=== PATIENT | female | born 1990 | race Caucasian/White ===

== ENCOUNTER 2016-08-19 17:39 | Emergency (ER) | payer OTHER ==
[2016-08-19 17:56] VITALS: BP 117/72; TEMP 98.7; BMI 28.7
--- NOTE | 2016-08-19 19:08 | PDOC ---
History of Present Illness - General Chief Complaint: Pain Stated Complaint: HEADACHE/EAR PROBLEM/17 WKS Time Seen by Provider: 08/19/16 18:58 History Source: Patient Exam Limitations: No Limitations - History of Present Illness Initial Comments: CHIEF COMPLAINT: 25 y/o afebrile female, approximately 16 week female c/o right earache and other symptoms. HISTORY OF PRESENT ILLNESS: The patient states she has had a right earache for the past 2 weeks, along with neck pain, upper back pain and anterior chest pain. She states all of her pain is worse when she touches the affected areas or lifts anything. She does admit to lifting her 2 year old child at home often. She took tylenol today with little relief and has a PCP appointment tomorrow. She denies f/c, n/v/d, cough, hemoptysis, SOB, abd pain, hematuria, dysuria, vaginal bleeding/discharge. Vital signs on arrival are notable for pulse of 107. REVIEW OF SYSTEMS: GENERAL/CONSTITUTIONAL: No fever/chills. No weakness. No weight change. HEAD, EYES, EARS, NOSE AND THROAT: No change in vision. +right ear pain. No sore throat. CARDIOVASCULAR: +chest pain. No shortness of breath. RESPIRATORY: No cough, wheezing, or hemoptysis. GASTROINTESTINAL: No abd pain, nausea, vomiting, diarrhea. GENITOURINARY: No dysuria, frequency, or change in urination. MUSCULOSKELETAL: No joint or muscle swelling or pain. +neck and upper back pain. SKIN: No rash or easy bruising. NEUROLOGIC: No headache, vertigo, loss of consciousness, or loss of sensation. PHYSICAL EXAM: GENERAL: The patient is awake, alert, and fully oriented, in no acute distress. She is very well appearing, ambulatory, in NAD or obvious discomfort. HEAD: Normal with no signs of trauma. ENT: Pupils equal, round and reactive to light, extraocular movements intact, sclera anicteric, conjunctiva clear. Neck supple. TMs normal b/l. Canals normal without erythema or edema b/l. LUNGS: Clear to auscultation bilaterally. Normal excursion. No respiratory distress or use of accessory muscles. CV: RRR, S1/S2, no MRG. Cap refill < 2 sec. CHEST WALL: Reproducible anterior chest wall pain with palpation. ABDOMEN: Soft, non-distended, non-tender even to deep palpation, no hepatomegaly or splenomegaly, no masses. MUSCULOSKELETAL: Reproducible neck pain with palpation of b/l trapezius muscles. No midline cervical spine TTP or step offs. EXTREMITIES: Normal range of motion, no edema. NEUROLOGICAL: Normal speech, normal gait. CN II-XII grossly intact. PSYCH: Normal mood, normal affect. SKIN: Warm, dry, normal turgor, no rashes or lesions noted. Past History - Past Medical History Allergies/Adverse Reactions: Allergies Allergy/AdvReac Type Severity Reaction Status Date / Time No Known Allergies Allergy Verified 08/19/16 17:53 Home Medications: Ambulatory Orders Pnv95/Ferrous Fumarate/FA [ Vitamin Tablet] 1 each PO DAILY 05/26/16 Asthma: Yes Cancer: No Cardiac Disorders: No Diabetes: No HTN: No Suicide Attempt (Hx): No Seizures: No Thyroid Disease: No - Reproductive History (#): 2 Para: 2 Therapeutic (s) & number: No - Immunization History Immunization Up to Date: Yes - Psycho/Social/Smoking Cessation Hx Anxiety: No Suicidal Ideation: No Smoking History: Never smoked Have you smoked in the past 12 months: No Hx Alcohol Use: No Drug/Substance Use Hx: No Substance Use Type: None Hx Substance Use Treatment: No *Physical Exam - Vital Signs Last Vital Signs Temp Pulse Resp BP Pulse Ox 98.7 F 107 H 19 117/72 100 08/19/16 17:53 08/19/16 17:53 08/19/16 17:53 08/19/16 17:53 08/19/16 17:53 Medical Decision Making - Medical Decision Making A/P: 25 y/o female with multiple complaints. Most appear to be musculoskeletal in nature. She continues to point to her lower sternum for area of pain. Will give PO zantac. The patient now states her middle chest pain is much better. The patient is no longer tachycardic. Suggested she try to avoid lifting, including her child if possible to help with her chest, neck and back pain. Suggested heating pad and massage as well to help with pain, and tylenol if needed. Instructed her to keep her f/u appointment with her PCP scheduled for tomorrow and return to the ER with any worsening or concerning symptoms. The patient verbalizes understanding of all instructions, has no further questions and is awaiting discharge. *DC/Admit/Observation/Transfer Diagnosis at time of Disposition: Musculoskeletal chest pain, Reflux esophagitis, Musculoskeletal pain - Discharge Dispostion Disposition: HOME Condition at time of disposition: Improved - Patient Instructions Printed Discharge Instructions: DI for Musculoskeletal Pain, Heartburn -- Overview Additional Instructions: Discharge Instructions: -Take Tylenol if needed for pain -Use massage and heating pad to help with pain -Avoid heavy lifting -Take over the counter Zantac if needed for middle chest pain -Keep the follow up appointment with your doctor scheduled for tomorrow -Return to the ER with any worsening or concerning symptoms Print Language: KOREAN
[2016-08-19] MEDS ORDERED: RANITIDINE HCL 150 MG TABLET (FP) PO ONE (19:19)
[2016-08-19] MEDS ORDERED: RANITIDINE HCL 150 MG TABLET (FP) ONE (19:24)
[2016-08-19 20:08] VITALS: PULSE 97
== END 2016-08-19 20:04 | disposition home or self-care (01) ==
LOC: JERFT 17:39
DX: O26.892 Other specified pregnancy related conditions, second trimester (principal); R07.89 Other chest pain; K21.0 Gastro-esophageal reflux disease with esophagitis; M79.1 Myalgia; J45.909 Unspecified asthma, uncomplicated; Z3A.17 17 weeks gestation of pregnancy
CPT/HCPCS: 99281-25

== ENCOUNTER 2017-01-15 11:15 | Inpatient (IN) | payer OTHER ==
[2017-01-15] MEDS ORDERED: PROMETHAZINE HCL 25 MG/1 ML VIAL IVPUSH PRN (12:34)
[2017-01-15] MEDS ORDERED: BUTORPHANOL TARTRATE 1 MG/ML VIAL IVPB PRN (12:34)
[2017-01-15] MEDS ORDERED: DEXTROSE 5%-LACTATED RINGERS 1,000 ML IV SCH ×2 (12:45)
--- NOTE | 2017-01-15 12:50 | HP ---
Past Medical History - Primary Care Physician PCP:: Elayne Owusu - Admission Chief Complaint: 26 yrs , 39 weeks iup onset LP since 6.00AM History of Present Illness: PNC at [address] [place] [address] . 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 Weeks Gestation by Dates: 39 ...EDC by Dates: 01/22/17 ...EDC by Sono: 01/22/17 Heme/Onc: Yes: Anemia Infectious Disease: No: HIV, STD's Psych: No: Addictions, Depression, Psychosis Endocrine: No: Diabetes Mellitus, Hyperparathyroidism, Hyperthyroidism, Hypothyroidism - Past Surgical History Past Surgical History: Yes: None Hx Myomectomy: No Hx Transabdominal Cerclage: No - Smoking History Smoking history: Never smoked Have you smoked in the past 12 months: No - Alcohol/Substance Use Hx Alcohol Use: No History of Substance Use: reports: None - Social History ADL: Independent History of Recent Travel: No Home Medications - Allergies Allergies/Adverse Reactions: Allergies Allergy/AdvReac Type Severity Reaction Status Date / Time No Known Allergies Allergy Verified 01/13/17 13:17 - Home Medications Home Medications: Ambulatory Orders Ferrous Sulfate [Feosol] 325 mg PO DAILY 09/30/16 Vit/Iron Fumarate/FA [ Tablet] 1 tab PO DAILY 09/30/16 Physical Exam - Maternity Vital Signs: Vital Signs Temperature 97.6 F 01/15/17 12:00 Pulse Rate 86 01/15/17 12:00 Respiratory Rate 18 01/15/17 12:00 Blood Pressure 138/76 01/15/17 12:00 O2 Sat by Pulse Oximetry (%) Constitutional: Yes: Well Nourished, Mild Distress Eyes: Yes: WNL HENT: Yes: WNL, Normocephalic Neck: Yes: WNL, Trachea Midline Cardiovascular: Yes: WNL, Regular Rate and Rhythm Breast(s): Yes: WNL - Abdominal Exam/OB Fundal Height: 40 Number of Fetuses: Single Presentation: Vertex Contractions: Yes Regularity: Regular (2-4 MIN) Intensity: Moderate Monitor Mode: External Heart Rate (range): 130-140 Heart Rate Location: [facility] Category: I Accelerations: Uniform Decelerations: None - Vaginal Exam/OB Vaginal Bleediing: No Speculum Exam: Yes Dilatation (cm): 2 Effacement (%): 80 Amniotic Membrane Status: Intact Presentation: Vertex/Position Station: -3 - Physical Exam Musculoskeletal: Yes: WNL Extremities: Yes: WNL. No: Calf Tenderness Edema: No Integumentary: Yes: WNL Deep Tendon Reflex Grade: Normal +2 ...Motor Strength: WNL Psychiatric: Yes: WNL, Alert, Oriented - Labs Lab Results: Laboratory Tests 01/15/17 01/15/17 01/15/17 12:45 12:45 12:45 WBC 9.3 Hgb 11.3 Hct 34.1 Plt Count 201 Neutrophils % 78.0 Lymphocytes % 16.9 D Monocytes % 4.5 Eosinophils % 0.3 Basophils % 0.3 INR 0.88 PTT (Actin FS) 26.8 L D Sodium Potassium Chloride Carbon Dioxide BUN Creatinine Random Glucose Calcium RPR Titer Nonreactive 01/15/17 12:45 WBC Hgb Hct Plt Count Neutrophils % Lymphocytes % Monocytes % Eosinophils % Basophils % INR PTT (Actin FS) Sodium 139 Potassium 4.1 Chloride 107 Carbon Dioxide 22 BUN 7 Creatinine 0.6 Random Glucose 79 Calcium 8.8 RPR Titer Problem List - Problems (1) 39 weeks gestation of Code(s): Z3A.39 - 39 WEEKS GESTATION OF (2) Labor established Code(s): BAC6420 - Assessment/Plan 26 Yyrs , 39 weeks, gbs neg in early labor plan Ct Trial of labor stadol + Phenerga for labor analgesia
[2017-01-15 12:54] VITALS: BMI 33.0
[2017-01-15 13:05] LABS: BASOPHIL 0.3 % (0-2.0); EOSINOPHIL 0.3 % (0-4.5); MCH 28.8 pg (25.7-33.7); MEAN CELL VOLUME 87.2 fl (80-96); MEAN PLT VOLUME 9.1 fl (7.5-11.1); PLATELET COUNT 201 K/MM3 (134-434); RDW 14.6 % (11.6-15.6); WHITE BLOOD COUNT 9.3 K/mm3 (4.0-10.0)
[2017-01-15 13:18] LABS: INR 0.88 (0.82-1.09); PROTHROMBIN TIME (PATIENT) 9.7 SEC (9.98-11.88)
[2017-01-15 13:21] LABS: ACTIVATED PTT 26.8 SECONDS (26.9-34.4)
[2017-01-15 13:28] LABS: ANION GAP 10 (8-16); CALCIUM 8.8 mg/dL (8.5-10.1); CO2 22 mmol/L (21-32); CREATININE 0.6 mg/dL (0.55-1.02); GLUCOSE,RANDOM 79 mg/dL (74-106)
[2017-01-15] MEDS ORDERED: OXYTOCIN 15 UNITS/ LR 250 ML 250 ML IVPB SCH (15:15)
--- NOTE | 2017-01-15 16:23 | PN ---
Progress Note, Labor Vaginal Exam #1 Labor Exam Date: 01/15/17 Labor Exam Time: 16:10 Heart Rate (range): 130-140 Dilatation: 6 Effacement (%): 90 Amniotic Membrane Status: Ruptured (SROM clear) Presentation: Vertex/Position Station: -1 Remarks: fhr cat-1 uc q2 min 14.45 Stadol 2 mg + phenrgan 25 mg IV stat 16.00 Pitocin started pt requests for epidural Vaginal Exam #2 Labor Exam Date: 01/15/17 Labor Exam Time: 06:40 Heart Rate (range): 140-150 Dilatation: 10 Effacement (%): 100 Amniotic Membrane Status: Ruptured Station: +1 Remarks: fhr cat-1 UC q 2-3 min wait for natural descent before encouraging to push Selected Entries 01/15/17 18:40 Pulse Rate 101 H Blood Pressure 126/75
[2017-01-15] MEDS ORDERED: ELECTROLYTE-148 SOLN 1,000 ML IV SCH (16:30)
[2017-01-15] MEDS ORDERED: FENTANYL/BUPIVACAINE/NS/PF - PCEA - 50 ML DISP.SYRIN EP SCH (17:00)
[2017-01-15] MEDS ORDERED: METHYLERGONOVINE MALEATE 0.2 MG/1 ML AMP IM PRN (19:50)
[2017-01-15] MEDS ORDERED: WITCH HAZEL 50% (TUCKS) 40 PAD/JAR PAD TP PRN (19:50)
[2017-01-15] MEDS ORDERED: BENZOCAINE 20% 57 GM BOTTLE TP PRN (19:50)
[2017-01-15] MEDS ORDERED: BENZOCAINE 28 GM HEMORRHOIDAL OINTMENT TP PRN (19:50)
[2017-01-15] MEDS ORDERED: BISACODYL 10 MG SUPP.RECT RC PRN (19:50)
[2017-01-15] MEDS ORDERED: oxyCODONE HCL 5 MG TABLET PO PRN (19:50)
[2017-01-15] MEDS ORDERED: D5W-LR W/ 20 UNITS OXYTOCIN 1,000 ML IV SCH (20:00)
--- NOTE | 2017-01-15 20:07 | PN ---
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 GBS neg PNC at [address] [place] [address] Pitocin augmentation was given . Intrapartum course was uneventful
[2017-01-15] MEDS: ACETAMINOPHEN 325 MG TABLET (FP) PO PRN (20:41)
[2017-01-15] MEDS: IBUPROFEN 600 MG TABLET (FP) PO PRN (20:42)
[2017-01-16] MEDS: IBUPROFEN 600 MG TABLET (FP) PO PRN ×5 (01:15→21:51)
[2017-01-16] MEDS: ACETAMINOPHEN 325 MG TABLET (FP) PO PRN ×4 (01:15→21:52)
[2017-01-16 07:12] LABS: BASOPHIL 0.7 % (0-2.0); EOSINOPHIL 0.4 % (0-4.5); MCH 29.3 pg (25.7-33.7); MCHC 33.5 g/dl (32.0-36.0); MEAN CELL VOLUME 87.5 fl (80-96); MEAN PLT VOLUME 9.1 fl (7.5-11.1); NEUTROPHILS 68.4 % (42.8-82.8); PLATELET COUNT 167 K/MM3 (134-434); RDW 14.4 % (11.6-15.6)
[2017-01-16 07:38] LABS: ANION GAP 5 (8-16); CALCIUM 8.1 mg/dL (8.5-10.1); CO2 26 mmol/L (21-32); CREATININE 0.7 mg/dL (0.55-1.02); GLUCOSE,RANDOM 112 mg/dL (74-106)
[2017-01-16] MEDS: FERROUS SO4 325 MG TABLET (FP) PO SCH ×2 (08:08→16:58)
--- NOTE | 2017-01-16 09:41 | PN ---
Post Progress Note - Subjective Subjective: no complains Post Day: 1 Type of Delivery: Vital Signs: Vital Signs Temperature 98.0 F 01/16/17 09:34 Pulse Rate 81 01/16/17 09:34 Respiratory Rate 18 01/16/17 09:34 Blood Pressure 118/67 01/16/17 09:34 O2 Sat by Pulse Oximetry (%) 100 01/15/17 20:45 Breast Exam: Yes: Soft. No: Engorged Uterus: Yes: Fundus Firm, Non-tender Lochia: Yes: Rubra Lochia, amount: Moderate Extremities: Yes: Calves non-tender, Edema Perineum: Yes: Intact Activity: Ambulating - Labs Labs: CBC WBC 10.0 K/mm3 (4.0-10.0) 01/16/17 06:00 RBC 3.11 M/mm3 (3.60-5.2) L D 01/16/17 06:00 Hgb 9.1 GM/dL (10.7-15.3) L D 01/16/17 06:00 Hct 27.2 % (32.4-45.2) L D 01/16/17 06:00 MCV 87.5 fl (80-96) 01/16/17 06:00 MCHC 33.5 g/dl (32.0-36.0) 01/16/17 06:00 RDW 14.4 % (11.6-15.6) 01/16/17 06:00 Plt Count 167 K/MM3 (134-434) 01/16/17 06:00 MPV 9.1 fl (7.5-11.1) 01/16/17 06:00 Neutrophils % 68.4 % (42.8-82.8) 01/16/17 06:00 Lymphocytes % 23.6 % (8-40) D 01/16/17 06:00 Monocytes % 6.9 % (3.8-10.2) 01/16/17 06:00 Eosinophils % 0.4 % (0-4.5) 01/16/17 06:00 Basophils % 0.7 % (0-2.0) 01/16/17 06:00 Problem List - Problems (1) 39 weeks gestation of Code(s): Z3A.39 - 39 WEEKS GESTATION OF (2) Labor established Code(s): JIA4186 - Assessment/Plan anemia stable plan discharge tomorrow
[2017-01-16] MEDS ORDERED: PNEUMOC 13-VAL CONJ-DIP CRM/PF 0.5 ML DISP.SYRIN IM ONE (10:00)
[2017-01-16] MEDS ORDERED: DIPHTH,PERTUSS(ACELL),TET 0.5 ML DISP.SYRIN IM ONE (10:00)
[2017-01-16] MEDS: PRENATAL VITAMINS W/ FOLIC ACID TABLET (FP) PO SCH (10:00)
[2017-01-16] MEDS ORDERED: SENNOSIDES/DOCUSATE COMBO (SENNA PLUS) TABLET (UD) PO PRN (22:00)
[2017-01-17] MEDS: ACETAMINOPHEN 325 MG TABLET (FP) PO PRN ×3 (02:05→13:06)
[2017-01-17] MEDS: IBUPROFEN 600 MG TABLET (FP) PO PRN ×3 (02:06→13:05)
[2017-01-17] MEDS: FERROUS SO4 325 MG TABLET (FP) PO SCH (07:19)
--- NOTE | 2017-01-17 08:07 | DS ---
Physical Exam-[facility] Vital Signs: Vital Signs Temperature 97.9 F 01/16/17 22:00 Pulse Rate 82 01/16/17 22:00 Respiratory Rate 20 01/16/17 22:00 Blood Pressure 116/66 01/16/17 22:00 O2 Sat by Pulse Oximetry (%) 100 01/15/17 20:45 Constitutional: Yes: Well Nourished, Pallor Eyes: Yes: WNL HENT: Yes: WNL Neck: Yes: WNL Cardiovascular: Yes: WNL, Regular Rate and Rhythm Respiratory: Yes: WNL Gastrointestinal: Yes: WNL, Normal Bowel Sounds Renal/: Yes: WNL ....Post : Yes: Uterus firm, Uterus non-tender, Moderate lochia rubra ( perineum intact) Breast(s): Yes: WNL Musculoskeletal: Yes: WNL Extremities: Yes: WNL. No: Calf Tenderness Edema: LLE: 1+, RLE: 1+ Integumentary: Yes: WNL Neurological: Yes: WNL, Alert, Oriented ...Motor Strength: WNL Psychiatric: Yes: WNL, Alert, Oriented Labs: CBC, BMP 01/16/17 06:00 01/16/17 06:00 Delivery - Delivery Vaginal Delivery: No Problems, Spontaneous Type of Anesthesia: Epidural Episiotomy/Laceration: None EBL (cc): 200 Delivery, Single - Stages of Labor Date 1st Stage Initiatied: 01/15/17 Time 1st Stage Initiated: 06:00 Date 2nd Stage Initiated: 01/15/17 Time 2nd Stage Initiated: 18:40 Date of Delivery: 01/15/17 Time of Delivery: 19:31 Time Placenta Delivered: 19:33 Placenta: Yes: Spontaneous, Uterine Exploration - Condition of Infant 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 GBS neg PNC at [address] [place] [address] Pitocin augmentation was given . Intrapartum course was uneventful pp course uneventful. anemia counselled discharge today Discharge Summary Reason For Visit: LABOR Current Active Problems 39 weeks gestation of (Acute) Anemia (Acute) Labor established (Acute) Normal spontaneous vaginal delivery (Acute) Condition: Stable - Instructions Diet, Activity, Other Instructions: Post Instructions DIET: Continue good diet high in protein, calcium, and iron rich foods. Drink at least eight (8) glasses of water daily in addition to other fluids. ___ Regular diet MEDICATIONS: Continue vitamins and iron as previously directed. Motrin and Tylenol may be taken for minor discomfort. ACTIVITY: Mild to moderate exercise may be started in two (2) weeks. Take frequent rest periods. Resume normal activity after six (6) week check up. WOUND CARE OF OPERATIVE SITE: Continue use of perineal bottle until vaginal discharge stops. Keep area clean. Shower daily. Keep abdominal wound dry. Report any drainage or redness to physician. Tub baths, tampons and douches are not permitted for [address] Breast feeding & or Bottle feeding BREAST CARE: (For those that are not breast feeding): If engorgement occurs: Wear tight fitting bra. Take Tylenol or Motrin for pain. Apply cold packs (ice in bags to each breast ) FAMILY PLANNING: There are many control alternatives to pursue and they should be discussed at your first office visit. You may resume sexual activity after your six (6) week check up. (Remember, breast feeding is not a contraceptive) NEXT PHYSICIAN APPOINTMENT: Be certain to call for a six (6) week appointment, unless otherwise directed. Call Clinic or got to Emergency Dept if you have any of the following: Heavy vaginal bleeding Painful urination Leg pain Unusual odor noted to vaginal bleeding High fever Red streaking noted on breast Referrals: Elayne Owusu MD [Staff Physician] - Disposition: HOME - Home Medications Comprehensive Discharge Medication List: Ambulatory Orders Ferrous Sulfate [Feosol] 325 mg PO DAILY 09/30/16 Vit/Iron Fumarate/FA [ Tablet] 1 tab PO DAILY 09/30/16 Acetaminophen [Tylenol .Regular Strength -] 650 mg PO Q3H PRN #0 tablet Ferrous Sulfate [Feosol] 325 mg PO BIDWM tab 01/16/17 Ibuprofen [Motrin -] 200 mg PO Q4H PRN #0 tablet 01/16/17 Vitamins (Sjr) - 1 tab PO DAILY tablet 01/16/17
[2017-01-17 08:40] VITALS: BP 123/80; PULSE 64; TEMP 98.1
[2017-01-17] MEDS: PRENATAL VITAMINS W/ FOLIC ACID TABLET (FP) PO SCH (10:16)
== END 2017-01-17 15:00 | disposition home or self-care (01) | DRG 560 ==
LOC: JDEL 11:15 → JLDR 11:55 → J3W 21:46
PROVIDERS: ADMIT Obstetrics & Gynecology; ATTEND Obstetrics & Gynecology
PROC: 10E0XZZ Delivery of Products of Conception, External Approach (ICD-10-PCS; principal; 2017-01-15)
DX: O99.02 Anemia complicating childbirth (principal); D64.9 Anemia, unspecified; Z3A.39 39 weeks gestation of pregnancy; Z37.0 Single live birth
CPT/HCPCS: 36415; 59409; 80048; 85025; 85610; 85730; 86593; 86850; 86900; 86901; 90670; 90715

== ENCOUNTER 2017-06-09 08:03 | Emergency (ER) | payer OTHER ==
[2017-06-09 08:13] VITALS: BP 134/70; PULSE 80; TEMP 98.6; BMI 24.7
--- NOTE | 2017-06-09 08:46 | PDOC ---
History of Present Illness - General Chief Complaint: Cold Symptoms Stated Complaint: COLD, FEVER Time Seen by Provider: 06/09/17 08:15 History Source: Patient Exam Limitations: No Limitations - History of Present Illness Initial Comments: 06/09/17 08:18 Patient is a [26-year-old female, no significant medical history currently on no medication. Presents to the Emergency Room with sore throat, Productive yellow sputum cough for 5 days, tactile fever since yesterday took tylenol one hour prior to arrival. Vomiting yesterday and this AM. Unable to eat solids. Pain to the back and the chest with coughing which started after she vomited yesterday. 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 Allergies: No known allergies Medications: [Albuterol PRN] Family History: Non-contributory Social History: Denies smoking, alcohol use, or IVDU Vital signs on arrival are [notable for pulse of 80.] Review of Systems GENERAL/CONSTITUTIONAL: [Fever, cough body aches. No weakness. No weight change. ] HEAD, EYES, EARS, NOSE AND THROAT: [No change in vision. No ear pain or discharge. No sore throat. ] CARDIOVASCULAR: [No chest pain or shortness of breath.] RESPIRATORY: [No cough, wheezing, or hemoptysis.] GASTROINTESTINAL: [+ nausea and vomiting, No diarrhea or constipation. No rectal bleeding.] GENITOURINARY: [No dysuria, frequency, or change in urination.] MUSCULOSKELETAL: [No joint or muscle swelling or pain. No neck or back pain.] SKIN : [No rash or easy bruising.] NEUROLOGIC: [No headache, vertigo, loss of consciousness, or loss of sensation.] Physical Exam: GENERAL: [The patient is awake, alert, and fully oriented, in no acute distress. ] EYES: [Pupils equal, round and reactive to light, extraocular movements intact, sclera anicteric, conjunctiva clear.] ENT: [Ears normal, nares patent, oropharynx clear without exudates. Moist mucous membranes. No uvula deviation] NECK: [Normal range of motion, supple without lymphadenopathy, JVD, or masses.] LUNGS: [Breath sounds equal, rhonchi bilaterally, no wheezing. Productive cough noted during assessment, tsang dark sputum] HEART: [Regular rate and rhythm, normal S1 and S2 without murmur, rub or gallop. ] ABDOMEN: [Soft, nontender, normoactive bowel sounds. No guarding, no rebound. No masses. No bruising or abrasions] MUSCULOSKELETAL: [Normal range of motion, no edema. No clubbing or cyanosis. No cords, erythema, or tenderness. No CVA Tenderness with fist palpation.] NEUROLOGICAL: [Cranial nerves II through XII grossly intact. Normal speech, normal gait.] SKIN: [Warm, Dry, normal turgor, no rashes or lesions noted.] Past History - Past Medical History Allergies/Adverse Reactions: Allergies Allergy/AdvReac Type Severity Reaction Status Date / Time No Known Allergies Allergy Verified 06/09/17 08:11 Home Medications: Ambulatory Orders Azithromycin [Zithromax 250mg Tablets -] 250 mg PO UTDICT #6 tab 06/09/17 Ondansetron [Zofran Odt -] 4 mg SL TID #10 od.tablet 06/09/17 Asthma: Yes Cancer: No Cardiac Disorders: No COPD: No Diabetes: No HTN: No Seizures: No Thyroid Disease: No - Reproductive History (#): 2 Para: 2 Therapeutic (s) & number: No - Immunization History Immunization Up to Date: Yes - Suicide/Smoking/Psychosocial Hx Smoking History: Never smoked Have you smoked in the past 12 months: No Hx Alcohol Use: No Drug/Substance Use Hx: No Substance Use Type: None Hx Substance Use Treatment: No *Physical Exam - Vital Signs Last Vital Signs Temp Pulse Resp BP Pulse Ox 98.6 F 80 18 134/70 100 06/09/17 08:10 06/09/17 08:10 06/09/17 08:10 06/09/17 08:10 06/09/17 08:10 Medical Decision Making - Medical Decision Making 06/09/17 08:50 A/P: Patient With productive cough, sore throat and cough, Fever with post tussive emesis. Patiet has not received an influenza vaccine. I will sent influenza and rapid strep. Zofran 4 mg PO for vomiting. 06/09/17 09:25 Rapid strep and influenza negative, patient with productive green and tsang sputum , cough. Patient with back pain and musculoskeletal chest pain with coughing. Will DC patient on azithromycin Zofran for nausea follow-up with PMD in 3 days I discussed the physical exam findings, ancillary test results and final diagnoses with the patient. I answered all of the patient's questions. The patient was satisfied with the care received and felt comfortable with the discharge plan and treatment plan. The patient will call to arrange follow-up and will return to the Emergency Department with any new, persistent or worsening symptoms. 06/09/17 09:28 *DC/Admit/Observation/Transfer Diagnosis at time of Disposition: Bronchitis - Discharge Dispostion Disposition: HOME Condition at time of disposition: Stable Admit: No - Prescriptions Prescriptions: Azithromycin [Zithromax 250mg Tablets -] 250 mg PO UTDICT #6 tab Ondansetron [Zofran Odt -] 4 mg SL TID #10 od.tablet - Referrals - Patient Instructions Printed Discharge Instructions: DI for Acute Bronchitis Additional Instructions: Keep head of bed elevated 45 when sleeping Cool air humidifier Antibiotics as ordered until completed Motrin for fever greater than 101 Followup in the primary care doctor's office in 2 days for evaluation. If any respiratory distress, increased cough, inability to drink, increased wheezing please return immediately to emergency department. - Post Discharge Activity
[2017-06-09] MEDS ORDERED: ONDANSETRON *ODT* 4 MG TABLET ONE (08:47)
[2017-06-09] MEDS ORDERED: ONDANSETRON *ODT* 4 MG TABLET SL ONE (08:52)
== END 2017-06-09 09:48 | disposition home or self-care (01) ==
LOC: JERFT 08:03
DX: J40 Bronchitis, not specified as acute or chronic (principal)
CPT/HCPCS: 87070; 87430; 87804; 99281-25

== ENCOUNTER 2017-09-20 19:41 | Emergency (ER) | payer OTHER ==
[2017-09-20 19:56] VITALS: BP 120/80; PULSE 96; TEMP 98.6; BMI 29.2
[2017-09-20] MEDS ORDERED: ACETAMINOPHEN 325 MG TABLET (FP) PO ONE (20:02)
[2017-09-20] MEDS ORDERED: ACETAMINOPHEN 325 MG TABLET (FP) ONE (20:03)
--- NOTE | 2017-09-20 20:09 | PDOC ---
History of Present Illness - General Chief Complaint: Injury Stated Complaint: FALL/12WKS History Source: Patient Exam Limitations: No Limitations - History of Present Illness Initial Comments: 09/20/17 20:01 Patient is a 26-year-old female with history of asthma, currently 12 weeks complaining of right knee and hip pain. Pain is 7/10, sharp and mostly with movement. States she was sleeping in the floor, bent over to pick something up, stated and fell on her right knee. This was called to transport to the hospital. States initially she only felt the knee pain however when EMS arrived and palpated the groin and it was painful. Denies any head strike, loss of consciousness, abdominal trauma, abdominal pain, vaginal bleeding. PMHX: as above PSOCHx: neg drug, etoh, cig. ALL: NKDA GENERAL/CONSTITUTIONAL: [No fever or chills. No weakness. No weight change.] HEAD, EYES, EARS, NOSE AND THROAT: [No change in vision. No ear pain or discharge. No sore throat.] CARDIOVASCULAR: [No chest pain or shortness of breath.] RESPIRATORY: [No cough, wheezing, or hemoptysis.] GASTROINTESTINAL: [No nausea, vomiting, diarrhea or constipation. No rectal bleeding.] GENITOURINARY: [No dysuria, frequency, or change in urination.] MUSCULOSKELETAL: (+) joint pain (-) muscle swelling or pain. No neck or back pain.] SKIN AND BREASTS: [No rash or easy bruising.] NEUROLOGIC: [No headache, vertigo, loss of consciousness, or loss of sensation.] PSYCHIATRIC: [No depression or anxiety.] ENDOCRINE: [No increased thirst. No abnormal weight change.] HEMATOLOGIC/LYMPHATIC: [No anemia, easy bleeding, or history of blood clots.] ALLERGIC/IMMUNOLOGIC: [No hives or skin allergy. No latex allergy.] GENERAL: [The patient is awake, alert, and fully oriented, in no acute distress. ] HEAD: [Normal with no signs of trauma.] EYES: [Pupils equal, round and reactive to light, extraocular movements intact, sclera anicteric, conjunctiva clear.] ENT: [Ears normal, nares patent, oropharynx clear without exudates. Moist mucous membranes.] NECK: [Normal range of motion, supple without lymphadenopathy, JVD, or masses.] LUNGS: [Breath sounds equal, clear to auscultation bilaterally. No wheezes, and no crackles.] HEART: [Regular rate and rhythm, normal S1 and S2 without murmur, rub.] ABDOMEN: [Soft, nontender, normoactive bowel sounds. No guarding, no rebound. No masses.] EXTREMITIES: Decreased range of motion right lower extremity, (+) tenderness over the right knee with deformity - high riding patella, mild tenderness to the right groin, no edema. No clubbing or cyanosis. No cords, erythema, or tenderness.] NEUROLOGICAL: [Cranial nerves II through XII grossly intact. Normal speech, normal gait.] PSYCH: [Normal mood, normal affect.] SKIN: [Warm, Dry, normal turgor, no rashes or lesions noted.] 09/20/17 22:43 Past History - Past Medical History Allergies/Adverse Reactions: Allergies Allergy/AdvReac Type Severity Reaction Status Date / Time No Known Allergies Allergy Verified 09/20/17 19:56 Home Medications: Ambulatory Orders Azithromycin [Zithromax 250mg Tablets -] 250 mg PO UTDICT #6 tab 06/09/17 Ondansetron [Zofran Odt -] 4 mg SL TID #10 od.tablet 06/09/17 Asthma: Yes Cancer: No Cardiac Disorders: No COPD: No Diabetes: No HTN: No Seizures: No Thyroid Disease: No - Reproductive History (#): 2 Para: 2 Therapeutic (s) & number: No - Immunization History Immunization Up to Date: Yes - Suicide/Smoking/Psychosocial Hx Smoking History: Never smoked Have you smoked in the past 12 months: No Information on smoking cessation initiated: No Hx Alcohol Use: No Drug/Substance Use Hx: No Substance Use Type: None Hx Substance Use Treatment: No *Physical Exam - Vital Signs Last Vital Signs Temp Pulse Resp BP Pulse Ox 98.6 F 96 H 18 120/80 100 09/20/17 19:54 09/20/17 19:54 09/20/17 19:54 09/20/17 19:54 09/20/17 19:54 Procedures - Joint Reduction Right Joint Reduction Site: right: Knee (patella) Pre-Procedure NV Exam: abnormal Conscious Sedation: No Procedure: Other (manipulation patella) Post-Procedure NV Exam: normal Complications: No Post Joint Reduction Film: joint reduced Immobilized: Yes ED Treatment Course - RADIOLOGY Radiology Studies Ordered: Category Date Time Status KNEE 3 POS-RIGHT [RAD] Stat Radiology 09/20/17 19:59 Ordered Medical Decision Making - Medical Decision Making 09/20/17 20:15 Patient is a 26-year-old female history of asthma who is 12 weeks complaining off right knee and hip pain after a fall to her knee. Since the patient is we will get a x-ray of the knee which abdominal sheild. tylneol 975mg po 09/20/17 22:38 xray shows mild dislocated patella reduction done with good relief of pain, placed in knee immobilizer, suprapatella tendon intact, patient has full painless ROM of the knee. will not do a reduction xray due to the . I discussed the physical exam findings, ancillary test results and final diagnoses with the patient. I answered all of the patient's questions. The patient was satisfied with the care received and felt comfortable with the discharge plan and treatment plan. The Patient agrees to follow up with the primary care physician within 24-72 hours. Instructed to follow-up with orthopedic. *DC/Admit/Observation/Transfer Diagnosis at time of Disposition: Closed patellar dislocation Qualifiers: Encounter type: initial encounter Laterality: right Qualified Code(s): S83.004A - Unspecified dislocation of right patella, initial encounter - Discharge Dispostion Disposition: HOME Condition at time of disposition: Stable - Referrals Referrals: Shandra Lepe [Primary Care Provider] - Andry Anne MD [Staff Physician] - - Patient Instructions Printed Discharge Instructions: DI for Patellar Dislocation Additional Instructions: Your Discharge Instructions: You must call primary care physician within 24 hours to arrange follow-up. Return to the Emergency Department with any new, persistent or worsening symptoms, for fever, chills, SOB, dizziness or any other concerning changes that may occur. Wear the knee immobilizer until seen by orthopedist. - Post Discharge Activity
== END 2017-09-20 22:57 | disposition home or self-care (01) ==
LOC: JER 19:41
PROC: 0QSDXZZ Reposition Right Patella, External Approach (ICD-10-PCS; principal; 2017-09-20)
DX: O99.89 Other specified diseases and conditions complicating pregnancy, childbirth and the puerperium (principal); S83.094A Other dislocation of right patella, initial encounter; W18.39XA Other fall on same level, initial encounter; Y93.89 Activity, other specified; Y92.030 Kitchen in apartment as the place of occurrence of the external cause; Y99.8 Other external cause status; Z3A.12 12 weeks gestation of pregnancy
CPT/HCPCS: 27560; 73560-TC-RT-FY; 99281-25

== ENCOUNTER 2017-09-22 11:49 | Emergency (ER) | payer OTHER ==
[2017-09-22 12:03] VITALS: BP 120/66; PULSE 110; TEMP 98.7; BMI 29.2
--- NOTE | 2017-09-22 12:38 | PDOC ---
History of Present Illness - General Chief Complaint: Injury Stated Complaint: INJURY, FALL (12 WKS ) Time Seen by Provider: 09/22/17 12:08 History Source: Patient Exam Limitations: No Limitations - History of Present Illness Initial Comments: 09/22/17 12:32 26 yr female with c/o lower back pain pt states she is 12 weeks , and fell 3 days ago injured her right knee. Pt denies falling on abdomen. no vaginal bleeding. Pt sent by her PMD for ultrasound. 09/22/17 14:00 Severity: mild Past History - Past Medical History Allergies/Adverse Reactions: Allergies Allergy/AdvReac Type Severity Reaction Status Date / Time No Known Allergies Allergy Verified 09/22/17 11:56 Home Medications: Ambulatory Orders NK [No Known Home Medication] 09/22/17 Asthma: Yes Cancer: No Cardiac Disorders: No COPD: No Diabetes: No HTN: No Seizures: No Thyroid Disease: No - Reproductive History (#): 4 Para: 2 Therapeutic (s) & number: No - Immunization History Immunization Up to Date: Yes - Suicide/Smoking/Psychosocial Hx Smoking History: Never smoked Have you smoked in the past 12 months: No Hx Alcohol Use: No Drug/Substance Use Hx: No Substance Use Type: None Hx Substance Use Treatment: No Review of Systems - Review of Systems Able to Perform ROS?: Yes Is the patient limited Kiswahili proficient: Yes Constitutional: No: Symptoms Reported HEENTM: No: Symptoms Reported Respiratory: No: Symptoms reported Cardiac (ROS): No: Symptoms Reported ABD/GI: No: Symptoms Reported : No: Symptoms Reported Musculoskeletal: Yes: Symptoms Reported Integumentary: No: Symptoms Reported *Physical Exam - Vital Signs Last Vital Signs Temp Pulse Resp BP Pulse Ox 98.7 F 110 H 20 120/66 97 09/22/17 11:56 09/22/17 11:56 09/22/17 11:56 09/22/17 11:56 09/22/17 11:56 - Physical Exam General Appearance: Yes: Nourished, Appropriately Dressed HEENT: positive: EOMI, MINDY, TMs Normal, Pharynx Normal Neck: negative: Tender Respiratory/Chest: positive: Lungs Clear, Normal Breath Sounds Cardiovascular: positive: Regular Rhythm, Regular Rate Female Pelvic Exam: positive: other (deferred not indicated ) Gastrointestinal/Abdominal: positive: Normal Bowel Sounds, Soft. negative: Tender Musculoskeletal: positive: Normal Inspection. negative: CVA Tenderness, CVA Tenderness (R), Vertebral Tenderness Extremity: positive: Normal Capillary Refill, Normal Inspection, Other (right leg in knee immobilizer with maco wrap to the knee ) Integumentary: positive: Normal Color, Dry, Warm Neurologic: positive: Fully Oriented, Alert, Normal Mood/Affect, Normal Response , Motor Strength 5/5 ED Treatment Course - RADIOLOGY Radiology Studies Ordered: Category Date Time Status TRANSVAGINAL US PREG [US] Stat Ultrasound 09/22/17 12:23 Ordered Medical Decision Making - Medical Decision Making 09/22/17 12:37 cc: lower back pain, pt states she tripped and fell 3 days ago was seen in ER dx with dislocated patella pt sent to ER by her PMD for her to have a US. pt states she is about 12 weeks no abd pain or bleeding , pt has low back pain, 1/ currently right knee with knee immobilizer in place s/p dislocated patella on Thursday pt has apt 09/28/17 with the orthopedist 09/22/17 13:53 US results reviewed and discussed with patient. 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 09/22/17 14:02 09/22/17 15:30 *DC/Admit/Observation/Transfer Diagnosis at time of Disposition: at early stage - Discharge Dispostion Disposition: HOME Condition at time of disposition: Good - Referrals Referrals: Shandra Lepe [Primary Care Provider] - - Patient Instructions Additional Instructions: follow with your billiard table repairer this week return to ER for any severe abdominal pain or bleeding - Post Discharge Activity
== END 2017-09-22 14:10 | disposition home or self-care (01) ==
LOC: JERFT 11:49
DX: O26.891 Other specified pregnancy related conditions, first trimester (principal); M54.5 Low back pain; Z3A.10 10 weeks gestation of pregnancy; Z91.81 History of falling
CPT/HCPCS: 76801-TC; 99281-25

== ENCOUNTER 2018-04-18 08:20 | Inpatient (IN) | payer OTHER ==
[2018-04-18 09:16] LABS: BASO % 0.5 % (0-2.0); EOS % 0.7 % (0-4.5); HEMATOCRIT 34.5 % (32.4-45.2); HEMOGLOBIN 11.3 GM/dL (10.7-15.3); LYMPH % 16.9 % (8-40); MCH 29.9 pg (25.7-33.7); MCHC 32.6 g/dl (32.0-36.0); MEAN CELL VOLUME 91.7 fl (80-96); MEAN PLT VOLUME 9.4 fl (7.5-11.1); MONO % 5.9 % (3.8-10.2); PLATELET COUNT 163 K/MM3 (134-434); RBC 3.77 M/mm3 (3.60-5.2); RDW 16.2 % (11.6-15.6); WHITE BLOOD COUNT 9.1 K/mm3 (4.0-10.0)
[2018-04-18] MEDS ORDERED: DINOPROSTONE 10 MG VAGINAL SUPPOSITORY VG ONE (09:17)
[2018-04-18] MEDS ORDERED: ALBUTEROL SO4 8 GM HFA INHALER IH PRN ×2 (09:17→09:29)
[2018-04-18] MEDS ORDERED: PROMETHAZINE HCL 25 MG/1 ML VIAL IVPUSH ONE (09:19)
[2018-04-18] MEDS ORDERED: BUTORPHANOL TARTRATE 1 MG/ML VIAL IVPUSH ONE (09:19)
[2018-04-18 09:26] VITALS: BMI 33.8
--- NOTE | 2018-04-18 09:29 | HP ---
Past Medical History - Primary Care Physician PCP:: Luca Mccormack - Admission Chief Complaint: 40.6 weeks,for cervidil induction History of Present Illness: 27 yo f g 4 [id number] admitted for cervidil induction , cx 2 cm 50 vx -2 mi, fhr cat 1., irregular contraction , care at [facility], no complication History Source: Patient Limitations to Obtaining History: Language Barrier - Past Medical History Pulmonary: Yes: Asthma Gastrointestinal: Yes: Hemorrhoids ...: 4 ...Para: 3 ...Term: 3 ...: 0 ...Spon : 0 ...Induced : 0 ...Multiple Gestation: 0 ...LMP: 07/06/17 ... Weeks Gestation by Dates: 40.6 ...EDC by Dates: 04/12/18 ...EDC by Sono: 04/16/18 Heme/Onc: Yes: Anemia - Past Surgical History Past Surgical History: Yes: None Hx Myomectomy: No Hx Transabdominal Cerclage: No - Smoking History Smoking history: Never smoked Have you smoked in the past 12 months: No - Alcohol/Substance Use Hx Alcohol Use: No History of Substance Use: reports: None - Social History Usual Living Arrangement: Yes: With Spouse ADL: Independent History of Recent Travel: No Home Medications - Allergies Allergies/Adverse Reactions: Allergies Allergy/AdvReac Type Severity Reaction Status Date / Time No Known Allergies Allergy Verified 04/02/18 23:29 - Home Medications Home Medications: Ambulatory Orders Albuterol Sulfate Inhaler - [Ventolin Hfa Inhaler -] 1 - 2 inh PO Q4H PRN Ferrous Sulfate [Feosol] 325 mg PO DAILY 02/17/18 Vitamins (Sjr) - 1 tab PO DAILY 02/17/18 Review of Systems - Review of Systems Constitutional: reports: No Symptoms Eyes: reports: No Symptoms HENT: reports: No Symptoms Neck: reports: No Symptoms Cardiovascular: reports: No Symptoms Respiratory: reports: No Symptoms Gastrointestinal: reports: No Symptoms Genitourinary: reports: No Symptoms Breasts: reports: No Symptoms Reported Musculoskeletal: reports: No Symptoms Integumentary: reports: No Symptoms Neurological: reports: No Symptoms Endocrine: reports: No Symptoms Hematology/Lymphatic: reports: No Symptoms Psychiatric: reports: No Symptoms Physical Exam - Maternity Constitutional: Yes: Well Nourished, No Distress, Calm Eyes: Yes: WNL, Conjunctiva Clear, EOM Intact HENT: Yes: WNL, Atraumatic, Normocephalic Neck: Yes: WNL, Supple, Trachea Midline Cardiovascular: Yes: WNL, Regular Rate and Rhythm Breast(s): Yes: WNL - Abdominal Exam/OB Fundal Height: 40 Number of Fetuses: Single Presentation: Vertex Contractions: Yes Regularity: Irregular Intensity: Unaware Monitor Mode: External Heart Rate Location: [facility] Category: I Accelerations: Uniform Decelerations: None - Vaginal Exam/OB Vaginal Bleediing: No Speculum Exam: No Dilatation (cm): 2cm Effacement (%): 50 Amniotic Membrane Status: Intact Presentation: Vertex/Position Station: -2 - Physical Exam Musculoskeletal: Yes: WNL Extremities: Yes: WNL Edema: Yes Edema: LLE: Trace, RLE: Trace Deep Tendon Reflex Grade: Normal +2 ...Motor Strength: WNL Psychiatric: Yes: WNL - Labs Lab Results: CBC, BMP 04/18/18 08:55 Hemorrhage Risk Assessment - Risk Factors Medium Risk Factors: Yes: Multiple gestation High Risk Factors: Yes: None Risk Score: 1 Risk Level: Medium Risk Problem List - Problems (1) Post term over 40 weeks Code(s): O48.0 - POST-TERM (2) Encounter for induction of labor Code(s): Z34.90 - ENCNTR FOR SUPRVSN OF NORMAL , UNSP, UNSP TRIMESTER (3) Asthma affecting in third trimester Code(s): O99.513 - DISEASES OF THE RESP SYS COMP , THIRD TRIMESTER; J45.909 - UNSPECIFIED ASTHMA, UNCOMPLICATED Assessment/Plan admit, fhm, cervidil risks and benfit discussed , agreed to be induced
[2018-04-18 09:32] LABS: INR 0.93 (0.83-1.09)
[2018-04-18 09:35] LABS: ACTIVATED PTT 23.7 SECONDS (25.2-36.5)
--- NOTE | 2018-04-18 09:36 | PN ---
Progress Note (short form) - Note Progress Note: cervidil was inserted at 9 am , fhr cat 1 Problem List - Problems (1) Post term over 40 weeks Code(s): O48.0 - POST-TERM (2) Encounter for induction of labor Code(s): Z34.90 - ENCNTR FOR SUPRVSN OF NORMAL , UNSP, UNSP TRIMESTER (3) Asthma affecting in third trimester Code(s): O99.513 - DISEASES OF THE RESP SYS COMP , THIRD TRIMESTER; J45.909 - UNSPECIFIED ASTHMA, UNCOMPLICATED
[2018-04-18 09:50] LABS: ANION GAP 9 MMOL/L (8-16); BLOOD UREA NITROGEN 7 mg/dL (7-18); CALCIUM 8.9 mg/dL (8.5-10.1); CHLORIDE 107 mmol/L (98-107); CO2 22 mmol/L (21-32); CREATININE 0.7 mg/dL (0.55-1.3); GLUCOSE,RANDOM 78 mg/dL (74-106); SODIUM 138 mmol/L (136-145)
[2018-04-18] MEDS ORDERED: ELECTROLYTE-148 SOLN 500 ML IV ONE (15:30)
[2018-04-18] MEDS ORDERED: FENTANYL/BUPIVACAINE/NS/PF - PCEA - 50 ML DISP.SYRIN EP ONE ×2 (15:37→19:08)
[2018-04-18] MEDS ORDERED: NALOXONE HCL 0.4 MG/ML VIAL IVPUSH PRN (15:43)
[2018-04-18] MEDS ORDERED: LIDO 2%/EPI 1:200000 PRESRVFRE (20 ML SDVIAL) ONE (15:44)
[2018-04-18] MEDS ORDERED: FENTANYL/BUPIVACAINE/NS/PF - PCEA - 50 ML DISP.SYRIN EP SCH (15:45)
[2018-04-18] MEDS: ELECTROLYTE-148 SOLN 1,000 ML IV SCH ×2 (16:30→19:17)
[2018-04-18] MEDS: DEXTROSE 5%-LACTATED RINGERS 1,000 ML IV SCH (16:58)
[2018-04-18] MEDS ORDERED: OXYTOCIN 30 UNITS in 0.9% NS 30 UNIT/500 ML INFUS.BAG IVPB ONE (17:30)
[2018-04-18] MEDS ORDERED: OXYTOCIN 30 UNITS in 0.9% NS 30 UNIT/500 ML INFUS.BAG IVPB SCH (17:30)
--- NOTE | 2018-04-18 17:55 | PN ---
Progress Note (short form) - Note Progress Note: cx 4 cm 80 vx -2 arom, clear, fhr cat 1, irregular contraction, cervidil removed at 4 55 pm, pitocin started, rba discussed Problem List - Problems (1) Post term over 40 weeks Code(s): O48.0 - POST-TERM (2) Encounter for induction of labor Code(s): Z34.90 - ENCNTR FOR SUPRVSN OF NORMAL , UNSP, UNSP TRIMESTER (3) Asthma affecting in third trimester Code(s): O99.513 - DISEASES OF THE RESP SYS COMP , THIRD TRIMESTER; J45.909 - UNSPECIFIED ASTHMA, UNCOMPLICATED
[2018-04-18] MEDS ORDERED: OXYTOCIN 20 UNITS in 0.9% NS 20 UNIT/1,000 ML INFUS.BAG IV ONE (20:16)
[2018-04-18] MEDS ORDERED: BENZOCAINE 20% 57 GM BOTTLE TP PRN (21:05)
[2018-04-18] MEDS ORDERED: WITCH HAZEL 50% (TUCKS) 40 PAD/JAR PAD TP PRN (21:05)
[2018-04-18] MEDS ORDERED: BISACODYL 10 MG SUPP.RECT RC PRN (21:05)
[2018-04-18] MEDS ORDERED: BENZOCAINE 28 GM HEMORRHOIDAL OINTMENT TP PRN (21:05)
[2018-04-18] MEDS ORDERED: METHYLERGONOVINE MALEATE 0.2 MG/1 ML AMP IM PRN (21:05)
[2018-04-18] MEDS ORDERED: D5W-LR W/ 20 UNITS OXYTOCIN 20 UNIT/1,000 ML INFUS.BAG IV SCH (21:15)
[2018-04-18] MEDS ORDERED: IBUPROFEN 600 MG TABLET (FP) PO ONE (21:52)
[2018-04-18] MEDS ORDERED: ACETAMINOPHEN 325 MG TABLET (FP) ONE (21:52)
[2018-04-19] MEDS: FERROUS SO4 325 MG TABLET (FP) PO SCH ×3 (00:27→21:23)
[2018-04-19] MEDS: ACETAMINOPHEN 325 MG TABLET (FP) PO PRN ×5 (00:28→21:23)
[2018-04-19] MEDS: IBUPROFEN 600 MG TABLET (FP) PO PRN ×5 (00:30→21:25)
--- NOTE | 2018-04-19 07:58 | PN ---
Progress Note (short form) - Note Progress Note: ppd , s/p ,doing well, no c/o CBC, BMP 04/18/18 08:55 04/18/18 08:55 Last Vital Signs Temp Pulse Resp BP Pulse Ox 98.2 F 80 18 118/76 100 04/19/18 06:00 04/19/18 06:00 04/19/18 06:00 04/19/18 06:00 04/18/18 22:00 abdomen soft, no distension, no cva uterus firm, non tender lochia mild no calf tenderness plan ambulate ,cbc Problem List - Problems (1) Post term over 40 weeks Code(s): O48.0 - POST-TERM (2) Encounter for induction of labor Code(s): Z34.90 - ENCNTR FOR SUPRVSN OF NORMAL , UNSP, UNSP TRIMESTER (3) Asthma affecting in third trimester Code(s): O99.513 - DISEASES OF THE RESP SYS COMP , THIRD TRIMESTER; J45.909 - UNSPECIFIED ASTHMA, UNCOMPLICATED
[2018-04-19 08:33] LABS: BASO % 0.4 % (0-2.0); EOS % 0.3 % (0-4.5); HEMATOCRIT 32.9 % (32.4-45.2); HEMOGLOBIN 10.8 GM/dL (10.7-15.3); LYMPH % 20.4 % (8-40); MCH 30.2 pg (25.7-33.7); MEAN CELL VOLUME 91.7 fl (80-96); MEAN PLT VOLUME 9.5 fl (7.5-11.1); MONO % 5.2 % (3.8-10.2); NEUT % 73.7 % (42.8-82.8); PLATELET COUNT 144 K/MM3 (134-434); RBC 3.58 M/mm3 (3.60-5.2); RDW 16.1 % (11.6-15.6); WHITE BLOOD COUNT 7.5 K/mm3 (4.0-10.0)
[2018-04-19] MEDS: PRENATAL VITAMINS W/ FOLIC ACID TABLET (FP) PO SCH (09:12)
[2018-04-19] MEDS ORDERED: DIPHTH,PERTUSS(ACELL),TET 0.5 ML DISP.SYRIN IM ONE (10:00)
[2018-04-19] MEDS ORDERED: SENNOSIDES/DOCUSATE COMBO (SENNA PLUS) TABLET (UD) PO PRN (22:00)
[2018-04-20] MEDS: OXYTOCIN 20 UNITS in 0.9% NS 20 UNIT/1,000 ML INFUS.BAG IV SCH ×2 (01:35→01:36)
[2018-04-20] MEDS: DEXTROSE 5%-LACTATED RINGERS 1,000 ML IV SCH (01:36)
[2018-04-20] MEDS: ACETAMINOPHEN 325 MG TABLET (FP) PO PRN ×2 (06:34→11:06)
[2018-04-20] MEDS: IBUPROFEN 600 MG TABLET (FP) PO PRN ×2 (06:34→11:06)
[2018-04-20 08:27] VITALS: BP 116/70; PULSE 70; TEMP 98.3
[2018-04-20] MEDS: PRENATAL VITAMINS W/ FOLIC ACID TABLET (FP) PO SCH (09:16)
[2018-04-20] MEDS: FERROUS SO4 325 MG TABLET (FP) PO SCH (09:16)
--- NOTE | 2018-04-20 12:05 | PN ---
Post Progress Note Post Day: 1 Type of Delivery: Vital Signs: Vital Signs Temperature 98.3 F 04/20/18 08:25 Pulse Rate 70 04/20/18 08:25 Respiratory Rate 18 04/20/18 08:25 Blood Pressure 116/70 04/20/18 08:25 O2 Sat by Pulse Oximetry (%) 100 04/18/18 22:00 Breast Exam: Yes: Soft Uterus: Yes: Fundus Firm Abdomen/GI: Yes: Abdomen soft Lochia: Yes: Rubra Lochia, amount: Small Perineum: Yes: Intact - Labs Labs: CBC WBC 7.5 K/mm3 (4.0-10.0) 04/19/18 08:00 RBC 3.58 M/mm3 (3.60-5.2) L 04/19/18 08:00 Hgb 10.8 GM/dL (10.7-15.3) 04/19/18 08:00 Hct 32.9 % (32.4-45.2) 04/19/18 08:00 MCV 91.7 fl (80-96) 04/19/18 08:00 MCH 30.2 pg (25.7-33.7) 04/19/18 08:00 MCHC 33.0 g/dl (32.0-36.0) 04/19/18 08:00 RDW 16.1 % (11.6-15.6) H 04/19/18 08:00 Plt Count 144 K/MM3 (134-434) 04/19/18 08:00 MPV 9.5 fl (7.5-11.1) 04/19/18 08:00 Absolute Neuts (auto) 5.6 K/mm3 (1.5-8.0) 04/19/18 08:00 Neutrophils % 73.7 % (42.8-82.8) 04/19/18 08:00 Lymphocytes % 20.4 % (8-40) D 04/19/18 08:00 Monocytes % 5.2 % (3.8-10.2) 04/19/18 08:00 Eosinophils % 0.3 % (0-4.5) 04/19/18 08:00 Basophils % 0.4 % (0-2.0) 04/19/18 08:00 Nucleated RBC % 0 % (0-0) 04/19/18 08:00 Assessment/Plan as above id home
--- NOTE | 2018-04-20 12:46 | DS ---
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 Vital Signs: Vital Signs Temperature 98.3 F 04/20/18 08:25 Pulse Rate 70 04/20/18 08:25 Respiratory Rate 18 04/20/18 08:25 Blood Pressure 116/70 04/20/18 08:25 O2 Sat by Pulse Oximetry (%) 100 04/18/18 22:00 Constitutional: Yes: Well Nourished, No Distress, Calm Eyes: Yes: WNL, Conjunctiva Clear, EOM Intact HENT: Yes: WNL, Atraumatic, Normocephalic Neck: Yes: WNL, Supple, Trachea Midline Cardiovascular: Yes: WNL, Regular Rate and Rhythm Respiratory: Yes: WNL, Regular, CTA Bilaterally Gastrointestinal: Yes: WNL ...Rectal Exam: Yes: WNL Renal/: Yes: WNL ....Post : Yes: Uterus firm, Uterus non-tender, Slight lochia rubra Breast(s): Yes: WNL Musculoskeletal: Yes: WNL Extremities: Yes: WNL Edema: No Integumentary: Yes: WNL Neurological: Yes: WNL, Alert, Oriented ...Motor Strength: WNL Psychiatric: Yes: WNL, Alert, Oriented Labs: CBC, BMP 04/19/18 08:00 04/18/18 08:55 Delivery - Delivery Vaginal Delivery: Spontaneous Type of Anesthesia: Epidural Episiotomy/Laceration: None EBL (cc): 300 Delivery, Single - Stages of Labor Date 1st Stage Initiatied: 04/18/18 Time 1st Stage Initiated: 15:30 Date 2nd Stage Initiated: 04/18/18 Time 2nd Stage Initiated: 20:35 Date of Delivery: 04/18/18 Time of Delivery: 20:48 Time Placenta Delivered: 20:50 Placenta: Yes: Spontaneous - 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 clinic in 6 weeks, call clinic for an appointment. Referrals: [facility] (Johana Hicks) [Outside] Disposition: HOME - Home Medications Comprehensive Discharge Medication List: Ambulatory Orders Albuterol Sulfate Inhaler - [Ventolin Hfa Inhaler -] 1 - 2 inh PO PRN PRN Ferrous Sulfate [Feosol] 325 mg PO DAILY 02/17/18 Vitamins (Sjr) - 1 tab PO DAILY 02/17/18
== END 2018-04-20 11:40 | disposition home or self-care (01) | DRG 560 ==
LOC: JLDR 08:20 → J3W 22:54
PROVIDERS: ADMIT Obstetrics & Gynecology; ATTEND Obstetrics & Gynecology
PROC: 10E0XZZ Delivery of Products of Conception, External Approach (ICD-10-PCS; principal; 2018-04-18)
PROC: 3E0P7VZ Introduction of Hormone into Female Reproductive, Via Natural or Artificial Opening (ICD-10-PCS; 2018-04-18)
DX: O48.0 Post-term pregnancy (principal); Z3A.40 40 weeks gestation of pregnancy; J45.909 Unspecified asthma, uncomplicated; O26.893 Other specified pregnancy related conditions, third trimester; Z37.0 Single live birth
CPT/HCPCS: 36415; 59409; 80048; 85025; 85610; 85730; 86593; 86850; 86900; 86901; 90686; 90715; G0008

== ENCOUNTER 2018-05-17 05:04 | Day surgery (SDC) | payer OTHER ==
[2018-05-13 09:03] VITALS: BMI 32.0
[2018-05-17] MEDS ORDERED: BUPIVACAINE HCL/PF 0.5% (5MG/ML) 10 ML VIAL ONE (08:51)
--- NOTE | 2018-05-17 11:33 | HP ---
Admitting History and Physical - Admission Chief Complaint: Tubal sterilization History of Present Illness: 27yo here for tubal sterilization Desires no future children, adamant and certain. Only wants tubal sterilization No complaints today. History Source: Patient Limitations to Obtaining History: Language Barrier - Past Medical History MAT INSPECTOR: No: Alzheimer's, CVA, Dementia, Migraine, Multiple Sclerosis, Peripheral Neuropathy, Parkinson's, Seizure, Syncope, TIA, Vertigo, Other Cardiovascular: No: AFIB, Aneurysm, Aortic Insufficiency, Aortic Stenosis, CAD, CHF, Deep Vein Thrombosis, HTN, Hyperlipdemia, NM, Mitral Insufficiency, Mitral Stenosis, Murmur, Pulmonary Hypertension, Other Pulmonary: Yes: Asthma Gastrointestinal: Yes: Hemorrhoids ...LMP: 07/20/17 Heme/Onc: Yes: Anemia - Past Surgical History Past Surgical History: Yes: None - Smoking History Smoking history: Never smoked Have you smoked in the past 12 months: No - Alcohol/Substance Use Hx Alcohol Use: No History of Substance Use: reports: None - Social History ADL: Independent History of Recent Travel: No Home Medications - Allergies Allergies/Adverse Reactions: Allergies Allergy/AdvReac Type Severity Reaction Status Date / Time No Known Allergies Allergy Verified 05/13/18 09:03 - Home Medications Home Medications: Ambulatory Orders Albuterol Sulfate Inhaler - [Ventolin Hfa Inhaler -] 1 - 2 inh PO PRN PRN Review of Systems - Review of Systems Constitutional: denies: No Symptoms, Chills, Diaphoresis, Fever, Lethargy, Loss of Appetite, Malaise, Night Sweats, Unintentional Wgt. Loss, Weakness, Other Eyes: denies: No Symptoms, Blind Spots, Blurred Vision, Double Vision, Eye Pain , Floaters, Photophobia, Recent Change in Vision, Other HENT: denies: No Symptoms, Difficult Swallowing, Ear Discharge, Ear Pain, Epistaxis, Gingival Bleeding, Hearing Loss, Mouth Swelling, Nasal Congestion, Ocular Prosthesis, Throat Pain, Toothache, Ringing in Ears, Other Neck: denies: No Symptoms, Decreased ROM, Lumps, Pain on Movement, Stiffness, Swollen Glands, Tenderness, Other Cardiovascular: denies: No Symptoms, Chest Pain, Edema, Palpitations, Shortness of Breath, Other Gastrointestinal: denies: No Symptoms, Abdominal Pain, Bloating, Constipation, Diarrhea, Dysphagia, Indigestion, Melena, Nausea, Rectal Bleeding, Vomiting, Vomiting Blood, Other Genitourinary: denies: No Symptoms, Burning, Discharge, Dysuria, Flank Pain, Frequency, Hematuria, Incontinence, Lesions, Menses, Pain, Testicular Mass, Testicular Pain, Testicular Swelling, Urgency, Vaginal Bleeding, Other Breasts: denies: No Symptoms Reported, See HPI, Breast Implants, Discharge from Nipple, Lumps, Pain, Skin Changes, Other Musculoskeletal: denies: No Symptoms, Back Pain, Crepitus, Decreased ROM, Extremity Pain, Joint Pain, Joint Swelling, Muscle Pain, Muscle Cramps, Muscle Weakness, Other Physical Examination Vital Signs: Vital Signs Temperature 98.4 F 05/17/18 08:43 Pulse Rate 87 05/17/18 08:43 Respiratory Rate 18 05/17/18 08:43 Blood Pressure 121/87 05/17/18 08:43 O2 Sat by Pulse Oximetry (%) 98 05/17/18 08:45 Constitutional: Yes: Well Nourished, No Distress, Calm Eyes: Yes: WNL, Conjunctiva Clear, EOM Intact Cardiovascular: Yes: WNL Respiratory: Yes: WNL, Regular, CTA Bilaterally Gastrointestinal: Yes: WNL, Normal Bowel Sounds Extremities: Yes: WNL Problem List - Problems (1) Sterilization Code(s): Z30.2 - ENCOUNTER FOR STERILIZATION Assessment/Plan 27yo here for sterilization Plan for laparoscopic b/l salpingectomy NPO, IVFs No antibioitcs SCDs Risk of bleeding, infection, injury to bladder/bowel/uterus/ nerves, arteries and veins discussed. All questions answered Discussed again permanency and not reversible; pt expresses understanding Proceed to OR Wendi Manzano MD
[2018-05-17] MEDS ORDERED: ROCURONIUM BROMIDE 50 MG/5 ML VIAL ONE (12:18)
[2018-05-17] MEDS ORDERED: MIDAZOLAM HCL 2 MG/2 ML SINGLE DOSE VIAL ONE (12:18)
[2018-05-17] MEDS ORDERED: DEXAMETHASONE SOD PHOSPHATE 4 MG/1 ML VIAL ONE (12:18)
[2018-05-17] MEDS ORDERED: PROPOFOL 20 ML ONE (12:18)
[2018-05-17] MEDS ORDERED: KETOROLAC TROMETHAMINE 30 MG/1 ML VIAL ONE (13:14)
[2018-05-17] MEDS ORDERED: NEOSTIGMINE METHYLSULFATE 0.5 MG/ML - 10 ML MDV ONE (13:14)
[2018-05-17] MEDS ORDERED: GLYCOPYRROLATE 0.2 MG/1 ML VIAL ONE ×2 (13:14→13:28)
[2018-05-17] MEDS ORDERED: BUPIVACAINE HCL/PF 0.5% (5MG/ML) 10 ML VIAL IJ ONE ×2 (13:26)
[2018-05-17] MEDS ORDERED: ONDANSETRON 4 MG/2 ML VIAL IVPUSH PRN (13:46)
[2018-05-17] MEDS ORDERED: oxyCODONE HCL 5 MG TABLET PO PRN ×2 (13:46)
[2018-05-17] MEDS ORDERED: PROMETHAZINE HCL 25 MG/1 ML VIAL IVPUSH PRN (13:46)
--- NOTE | 2018-05-17 13:53 | OP ---
Operative Note - Note: Operative Date: 05/17/18 Pre-Operative Diagnosis: Desires Permanent Sterilization Operation: Laparoscopic Bilateral Salpingectomy Findings: Normal uterus, normal tubes and ovaries bilaterally. Normal appendix Post-Operative Diagnosis: Same as Pre-op Surgeon: Tara Manzano Nipple Machine Operator: Marco Contreras Anesthesia: General Specimens Removed: Bilateral Fallopian Tubes Estimated Blood Loss (mls): 5 Operative Report Dictated: Yes
[2018-05-17] MEDS ORDERED: LACTATED RINGERS SOLUTION 1,000 ML IV SCH (14:00)
--- NOTE | 2018-05-17 14:26 | SURG ---
Surgery Machine Pecan Picker Note Machine Pecan Picker: Marco Contreras PA-C Date of Service: 05/17/18 Diagnosis: Elective Sterilization Procedure: Laparoscopic Bilateral Salpingectomy I was present for the entirety of the operative procedure. For further detail, please refer to operative report. Visit type - Case Type Case Type: Scheduled - New patient This patient is new to me today: Yes Date on this admission: 05/17/18
[2018-05-17 16:43] VITALS: BP 125/71; PULSE 65; TEMP 97.9
--- NOTE | 2018-05-18 08:23 | OP ---
DATE OF OPERATION: 05/17/2018 PREOPERATIVE DIAGNOSIS: Desires permanent sterilization. POSTOPERATIVE DIAGNOSIS: Desires permanent sterilization. PROCEDURE: Laparoscopic bilateral salpingectomy. SURGEON: Tara Manzano MD SALON CUSTOMER EXPERIENCE SPECIALIST: Marco Contreras PA-C ANESTHESIA: General. INTRAVENOUS FLUIDS: Per anesthesia record. URINE OUTPUT: Clear urine 100 mL at the end of the procedure. ESTIMATED BLOOD LOSS: 5 mL FINDINGS: Normal uterus, normal tubes bilaterally, normal ovaries bilaterally, normal appendix. COMPLICATIONS: None. CONDITION: Stable to PACU. NATURE OF THE PROCEDURE: After appropriate consents were signed and patient expressed certain desire for permanent sterilization that is nonreversible, she was taken to the operating room where general anesthesia was administered. She was placed in dorsal lithotomy position. A Martinez catheter was inserted. Abdomen was prepped and draped in the normal sterile fashion. Using 0.25% Marcaine, the umbilicus was injected. Using a 15-blade scalpel, an incision was made to accommodate a 5-mm trocar. The trocar was introduced under direct visualization. Entry into the abdominal cavity was noted. The abdomen was insufflated with carbon dioxide. Patient was placed in Trendelenburg position. There was excellent visualization of the fallopian tubes, ovaries, and the uterus. A 5-mm incision was made in the right and lower quadrants, both to accommodate 5-mm ports and entered under direct visualization. The left tube was grasped at the fimbriated end, carried through to its insertion at the uterus and appeared normal. The left fallopian tube was then transected along the mesosalpinx along to its insertion into the uterus with the LigaSure and then removed under visualization through the 5-mm trocar. Attention then was paid to the contralateral tube which then was also grasped at the fimbriated end, carried through to its insertion at the uterus which appeared to be normal. Then, using the LigaSure, it was transected along the mesosalpinx along to its insertion along the uterus. The fallopian tube was then removed. Both transection sites were noted to be hemostatic. Both fallopian tubes were removed through the left lower quadrant 5-mm port. The abdomen was then re-inspected. No bleeding was noted. Ovaries appeared unremarkable. The appendix was noted to be normal. The 5-mm left and right lower quadrant ports were removed under direct visualization. No bleeding ensued from the insertion sites. The umbilical port was then also removed. The abdomen was deflated of air. The port sites were closed with a 4-0 Biosyn, and appropriate bandages were placed. Martinez catheter was then removed. The patient was taken from the operating room to the recovery area in stable condition. She did not receive any antibiotics during the procedure. MD EJ [id number] MTDD
--- NOTE | 2018-05-19 16:16 | PATH ---
Surgical Pathology Report Patient Name: KITA PILLAI [facility]. Rec. #: [id number] /Age/Gender: 1990 (Age: 27) / F Account: [id number] Location: [facility] Taken: 05/17/2018 Received: 05/18/2018 Reported: 05/19/2018 Physicians: Tara Manzano Specimen(s) Received A: PORTION OF LEFT FALLOPIAN TUBE B: PORTION OF RIGHT FALLOPIAN TUBE Clinical History Sterilization Final Diagnosis A. PORTION OF LEFT FALLOPIAN TUBE, SALPINGECTOMY: COMPLETE CROSS SECTION OF THE FALLOPIAN TUBE IDENTIFIED. B. PORTION OF RIGHT FALLOPIAN TUBE, SALPINGECTOMY: COMPLETE CROSS SECTION OF THE FALLOPIAN TUBE IDENTIFIED. Electronically Signed Violeta Mccormick M.D. Gross Description A. Received in formalin labeled "portion of left fallopian tube," is a 3 cm in length fimbriated portion of fallopian tube. The outer surface is jaramillo purple and smooth. Sectioning reveals an unremarkable lumen. [employer] sections are submitted in 2 cassettes as follows: 1-fimbria; 2-cross sections of fallopian tube. B. Received in formalin labeled "portion of right fallopian tube," is a 4.5 cm in length fimbriated portion of fallopian tube. The outer surface is jaramillo purple and smooth. Sectioning reveals an unremarkable lumen. [employer] sections are submitted in 2 cassettes as follows: 1-fimbria; 2-cross sections of fallopian tube. DL/05/18/2018 saudi05/18/2018
== END 2018-05-17 16:10 | disposition home or self-care (01) ==
LOC: JASU-SURG 05:04
PROVIDERS: ATTEND Obstetrics & Gynecology
PROC: 0U574ZZ Destruction of Bilateral Fallopian Tubes, Percutaneous Endoscopic Approach (ICD-10-PCS; principal; 2018-05-17 11:00)
DX: Z30.2 Encounter for sterilization (principal)
CPT/HCPCS: 84703; 88302-TC; 94760

== ENCOUNTER 2019-01-07 18:22 | Emergency (ER) | payer OTHER ==
--- NOTE | 2019-01-07 18:47 | PDOC ---
Rapid Medical Evaluation Chief Complaint: Revisit,Wound Recheck Time Seen by Provider: 01/07/19 18:37 Medical Evaluation: Allergies Allergy/AdvReac Type Severity Reaction Status Date / Time No Known Allergies Allergy Verified 01/07/19 18:44 01/07/19 18:46 I have performed a brief in-person evaluation of this patient. The patient presents with a chief complaint of: wrist pain and swelling. surgery 12/17 Pertinent physical exam findings:stable and in NAD, non-focal I have ordered the following: n/a, provider to determine The patient will proceed to the ED for further evaluation.
[2019-01-07 18:48] VITALS: BP 126/68; PULSE 86; TEMP 98.2; BMI 33.2
--- NOTE | 2019-01-07 19:08 | PDOC ---
Suture Removal/Wound Check HPI - History of Present Illness Chief Complaint: Revisit,Wound Recheck Stated Complaint: PAIN Time Seen by Provider: 01/07/19 18:37 History Source: Yes: Patient Exam Limitations: Yes: No Limitations Past History - Past Medical History Allergies/Adverse Reactions: Allergies Allergy/AdvReac Type Severity Reaction Status Date / Time No Known Allergies Allergy Verified 01/07/19 18:44 Home Medications: Ambulatory Orders Albuterol Sulfate Inhaler - [Ventolin Hfa Inhaler -] 1 - 2 inh PO PRN PRN Ibuprofen 600 mg PO Q6H PRN #30 tablet 05/17/18 Asthma: Yes (no recent episodes) Cancer: No Cardiac Disorders: No CVA: No COPD: No CHF: No Dementia: No Diabetes: No GI Disorders: No Disorders: No HTN: No Hypercholesterolemia: No Liver Disease: No Seizures: No Thyroid Disease: No - Reproductive History (#): 4 Para: 2 Therapeutic (s) & number: No - Immunization History Immunization Up to Date: Yes - Suicide/Smoking/Psychosocial Hx Smoking History: Never smoked Have you smoked in the past 12 months: No Information on smoking cessation initiated: No Hx Alcohol Use: No Drug/Substance Use Hx: No Substance Use Type: None Hx Substance Use Treatment: No Suture Removal/Wound Check PE - Physical Exam Laceration/Wound Check Symptoms: reports: Pain. denies: Fever, Chills, Redness , Discharge, Bleeding, Numbness, Weakness Comments: L wrist site with sutures in place along volar site, no erythema, no streaking, no swelling, no induration or fluctuance to site, no drainage 01/07/19 19:04 *Physical Exam - Vital Signs Last Vital Signs Temp Pulse Resp BP Pulse Ox 98.2 F 86 16 126/68 100 01/07/19 18:45 01/07/19 18:45 01/07/19 18:45 01/07/19 18:45 01/07/19 18:45 Medical Decision Making - Medical Decision Making 28 y/o F with no sig pmh presents with L wrist pain s/p lipoma removal along wrist on 12/17 at [facility]. States having pain along wrist pain; spoke to her surgeon 5 days ago who advised her to take Motrin, but states Motrin is not helping. Next appt with surgeon is not until 02/01. Denies fever, redness, discharge, streaking. Sutures have not yet been removed from site; per patient, she was told sutures would dissolve No sign on infection along site of surgery Advised to f/u with surgeon for further evaluation 01/07/19 19:05 *DC/Admit/Observation/Transfer Diagnosis at time of Disposition: Post-op pain - Discharge Dispostion Disposition: HOME Condition at time of disposition: Stable Decision to Admit order: No - Referrals - Patient Instructions Additional Instructions: Thank you for choosing [facility]. It was a pleasure taking care of you. Please call your surgeon for further follow-up of your symptoms Find out when your sutures need to be taken out Return to the Emergency Department if your symptoms worsen or persist, you have fever, redness, pustular drainage, streaking from site of surgery or other concerning symptoms. Fatuma por elegir el [facility]. Fue un placer cuidar de ti. Por favor llame a oconnell cirujano para un mayor seguimiento de wood sntomas. Averige cundo deben retirarse las suturas. Regrese al Departamento de Emergencias si wood sntomas empeoran o persisten, tiene fiebre, enrojecimiento, drenaje pustular, tammy en el lugar de la ciruga u otros sntomas relacionados. - Post Discharge Activity
== END 2019-01-07 19:10 | disposition home or self-care (01) ==
LOC: JERFT 18:22
DX: G89.18 Other acute postprocedural pain (principal)
CPT/HCPCS: 99281-25

== ENCOUNTER 2019-03-28 10:12 | Emergency (ER) | payer OTHER | END 2019-03-28 13:52 | disposition home or self-care (01) | LOC: JER 10:12 ==